=== PATIENT | female | born 1995 | race Two or more races ===

== ENCOUNTER 2024-02-25 05:01 | Emergency (ER) | payer OTHER ==
[~2024-02-25] VITALS: Ht 175.3 cm; Wt 87.1 kg
[2024-02-25] MEDS ORDERED: TETRACAINE HCL 20 DR/ML DROPS OP STA (06:22)
== END 2024-02-25 06:32 | disposition home or self-care (01) ==
LOC: ER 05:02
DX: H10.89 Other conjunctivitis (principal)